=== PATIENT | female | born 1995 | race African-American/Black ===

== ENCOUNTER 2017-08-29 14:52 | Emergency (ER) | payer MEDICAID ==
[~2017-08-29] VITALS: Ht 157.5 cm; Wt 57.0 kg
[2017-08-29 14:58] VITALS: BP 124/76
== END 2017-08-29 16:57 | disposition home or self-care (01) ==
LOC: ER 15:27
DX: Z32.01 Encounter for pregnancy test, result positive (principal)
CPT/HCPCS: 81025; 99282